=== PATIENT | male | born 1985 | race African-American/Black ===

== ENCOUNTER 2024-06-07 11:33 | Emergency (ER) | payer OTHER ==
[2024-06-07 11:43] VITALS: BP 110/75; PULSE 85; RESP 18; TEMP 98.4; BMI 35.4
[2024-06-07 13:03] LABS: PH,URINE 5.5 (5.0-8.0); URINE APPEARANCE CLEAR; URINE BILIRUBIN NEGATIVE (NEGATIVE); URINE COLOR YELLOW; URINE GLUCOSE (UA) NEGATIVE (NEGATIVE); URINE KETONE NEGATIVE (NEGATIVE); URINE LEUK ESTERASE NEGATIVE (NEGATIVE); URINE NITRITE NEGATIVE (NEGATIVE); URINE PROTEIN NEGATIVE (NEGATIVE)
[2024-06-07 13:04] LABS: BASO % 0.7 % (0-2.0); EOS % 1.1 % (0-4.5); HEMATOCRIT 45.3 % (35.4-49); LYMPH % 34.7 % (8-40); MCH 29.6 pg (25.7-33.7); MCHC 33.1 g/dl (32.0-35.9); MEAN CELL VOLUME 89.5 fl (80-96); MONO % 11.8 % (3.8-10.2); NEUT % 51.7 % (42.8-82.8); PLATELET COUNT 269 10^3/uL (134-434); RBC 5.06 M/mm3 (4.00-5.60); RDW 15.2 % (11.9-15.9); WHITE BLOOD COUNT 7.7 K/mm3 (4.0-10.0)
[2024-06-07 13:06] LABS: INR 1.25 (0.83-1.09); PROTHROMBIN TIME (PATIENT) 13.6 SEC (9.7-13.0)
[2024-06-07 13:09] LABS: ACTIVATED PTT 34.6 SECONDS (25.2-36.5)
[2024-06-07 13:35] LABS: CHLORIDE 103 mmol/L (98-107); POTASSIUM 4.2 mmol/L (3.5-5.1); SODIUM 138 mmol/L (136-145)
[2024-06-07 13:36] LABS: CALCIUM 9.3 mg/dL (8.5-10.1)
[2024-06-07 13:37] LABS: ALBUMIN 3.8 g/dl (3.4-5.0); ANION GAP 8 mmol/L (4-13); CO2 27 mmol/L (21-32)
[2024-06-07 13:40] LABS: CREATININE 1.3 mg/dL (0.55-1.3); SGOT/AST 20 U/L (15-37); SGPT/ALT 31 U/L (13-61)
[2024-06-07 13:41] LABS: TOT PROT 7.8 g/dl (6.4-8.2)
[2024-06-07 13:50] LABS: CHOLESTEROL 163 mg/dL (50-200)
[2024-06-07 13:51] LABS: BILIRUBIN,TOTAL 0.4 mg/dL (0.2-1); LDL CHOLESTEROL (ONLY SJRH) 112 mg/dL (5-100)
[2024-06-07 13:52] LABS: ALK PHOS 68 U/L (45-117); HDL CHOLESTEROL 38 mg/dL (40-60)
[2024-06-07 13:58] LABS: BLOOD UREA NITROGEN 13.2 mg/dL (7-18); GLUCOSE,RANDOM 102 mg/dL (74-106)
== END 2024-06-07 14:24 | disposition home or self-care (01) ==
LOC: JER 11:33
DX: R20.2 Paresthesia of skin (principal); Z63.5 Disruption of family by separation and divorce
CPT/HCPCS: 36415; 70450-TC; 80053; 80061; 81003; 82550; 82553; 82962; 83036; 84484; 85025; 85610; 85730; 86850; 86900; 86901; 93005; 93010; 99285-25